=== PATIENT | female | born 2000 | race Caucasian/White ===

== ENCOUNTER 2018-02-03 06:42 | Emergency (ER) | payer SELFPAY ==
[~2018-02-03] VITALS: Ht 170.2 cm; Wt 65.8 kg
[2018-02-03] MEDS ORDERED: LIDOCAINE 1% INJ 50 ML MDV IJ ONE (07:00)
[2018-02-03] MEDS ORDERED: LIDOCAINE /MPF 1% VIAL 5 ML VIAL ONE (07:01)
--- NOTE | 2018-02-03 07:09 | NUR ---
REPORT GIVEN TO LUCIO ANDERSON FOR KAVITA
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
--- NOTE | 2018-02-03 08:02 | NUR ---
Patient discharged to home in stable condition. Written and verbal after care instructions given. Patient verbalizes understanding of instruction.
[2018-02-03 08:05] VITALS: BP 117/65
== END 2018-02-03 08:06 | disposition home or self-care (01) ==
LOC: ER 06:44
DX: S61.212A Laceration without foreign body of right middle finger without damage to nail, initial encounter (principal); W23.0XXA Caught, crushed, jammed, or pinched between moving objects, initial encounter; Y93.89 Activity, other specified; Y92.89 Other specified places as the place of occurrence of the external cause; Y99.8 Other external cause status
CPT/HCPCS: 73140-TC; A4606; A6403; J3490; Z7610